=== PATIENT | male | born 1955 | race African-American/Black ===

== ENCOUNTER 2018-06-16 14:40 | Inpatient (IN) ==
[2018-06-16] MEDS ORDERED: ALBUT/IPRATROP 3MG/0.5MG NEB 3 ML VIAL INH STA (15:29)
[2018-06-16] MEDS ORDERED: SODIUM CHLORIDE 0.9% 1000ML 2,000 ML IV SCH (15:30)
--- NOTE | 2018-06-16 15:42 | XRay Report ---
XR chest 1V portable CLINICAL HISTORY: Dyspnea dyspnea COMPARISON STUDY: 04/04/2018 FINDINGS: Similar exam compared to the prior study. Baseline emphysematous change. Improving right ap ical infiltrate. Stable left nasal interval extent right basilar parenchymal infiltrative process. Di aphragms smooth. Mild chronic elevation left hemidiaphragm. IMPRESSION: 1. Improving right apical infiltrate. 2. Stable to slightly progressive bibasilar parenchymal infiltrative change. The above report was generated using voice recognition software. It may contain grammatical, syntax or spelling errors. Electronically signed by: Juan Downing M.D. 06/16/2018 3:40 PM
[2018-06-16 16:03] LABS: Basophils # (auto) 0.04 K/uL (0-0.2); Basophils % (auto) 0.4 %; Eosinophils % (auto) 9.4 %; Hematocrit (blood only) 47.3 % (42-52); Hemoglobin 15.9 g/dL (14.0-18.0); Immature Granulocytes # (auto) 0.04 K/uL (0.00-0.02); Immature Granulocytes % (auto) 0.4 %; Lymphocytes # (auto) 1.96 K/uL (1.2-3.4); Lymphocytes % (auto) 20.4 %; Mean Corpuscular Hgb Conc 33.6 g/dL (32-36); Mean Corpuscular Volume 94.8 fL (80-100); Mean Platelet Volume 9.9 fL (7.4-10.4); Monocytes # (auto) 1.72 K/uL (0.11-0.59); Monocytes % (auto) 17.9 %; Neutrophils # (auto) 4.94 K/uL (1.4-6.5); Neutrophils % (auto) 51.5 %; Platelet Count 326 K/uL (130-400); RDW Coefficient of Variation 15.3 % (11.5-14.5); RDW Standard Deviation 52.8 fL (36.4-46.3); Red Blood Count 4.99 M/uL (4.7-6.1)
[2018-06-16 16:08] LABS: HCO3 VBG 27 mmol/L; Oxygen Saturation VBG < 60.0 %; PCO2 VBG 57 mmHg (38-50); PO2 VBG 18 mmHg; pH VBG 7.29 (7.36-7.41)
[2018-06-16 16:22] LABS: Albumin Level 3.2 gm/dl (3.4-5.0); Calcium 8.9 mg/dl (8.5-10.1); Creatinine Clr Calc Pharmacy 40.6 ml/min; Est GFR (African American) 29.7; Est GFR (Non-African American) 25.7; Potassium 4.3 mmol/L (3.5-5.1)
[2018-06-16 16:24] LABS: Albumin Globulin Ratio 0.7 (0.9-2); Bilirubin,Total 0.4 mg/dl (0.2-1); Globulin 4.5 gm/dl (2.5-4.0); INR 1.1 (0.9-1.1); Partial Thromboplastin Ratio 1.1; Partial Thromboplastin Time 30.1 Seconds (21.0-31.0); Prothrombin Time 10.8 Seconds (9.0-12.0); Total Protein 7.7 gm/dl (6.4-8.2); Troponin I 0.018 ng/ml (0-0.045)
[2018-06-16 17:18] LABS: Influenza A virus by PCR Neg for Influ A (Neg); Influenza B virus by PCR Neg for Influ B (Neg)
--- NOTE | 2018-06-16 17:44 | Ultrasound Report ---
US venous doppler LE BI CLINICAL HISTORY: Leg swelling SHORTNESS OF BREATH COMPARISON STUDY: No previous studies for comparison. FINDINGS: Real-time and color flow Doppler imaging were performed. Flow was seen within the femoral, popliteal and calf veins with no intraluminal thrombus demonstrated. The saphenous vein is patent. IMPRESSION: No evidence of lower extremity DVT. Electronically signed by: Kendall Ahmadi M.D. 06/16/2018 5:43 PM
[2018-06-16] MEDS: SODIUM CHLORIDE 0.9% 1000ML 1,000 ML IV ONE ×2 (17:56→19:01)
[2018-06-16] MEDS ORDERED: CONSULT PHARMACY STA (18:29)
[2018-06-16] MEDS ORDERED: PIPERACILLIN/TAZOBACTAM 3.375 GM in DEXTROSE 5% 100 ML IV ONE (18:45)
[2018-06-16 18:55] LABS: Appearance Urine Clear (Clear); Bilirubin Urine Negative (Negative); Blood Urine Negative (Negative); Color Urine Yellow; Glucose Urine UA Negative (Negative); Ketones Urine Negative (Negative); Leukocyte Esterase Urine Negative (Negative); Nitrite Urine Negative (Negative); Protein Urine Negative (Negative); Specific Gravity Urine 1.011 (1.000-1.030); Urobilinogen Urine Negative (Negative); pH Urine 5.5 (4.5-7.5)
--- NOTE | 2018-06-16 19:40 | Emergency Department Note ---
Entered by Bora Parmar acting as a scribe for History of Present Illness General Chief complaint: Hypotension Source: patient and family Limitations: no limitations History of Present Illness Provider complaint: SOB Onset (ago): hour(s) (6.5) Location: chest (SOB) Pain Consistency: + other (worsening) Maximum Pain Intensity: 6 Quality: + other (SOB) Associated symptoms: + other (Hypotensive); no chest pain The patient is a 62 year old male who presents to the Emergency Room with complaints of an episode shortness of breath that occurred at 0900 this morning 6.5 hours ago. The patient is currently an inmate at [facility] and reports to the ED with corrections officers. The investment officer states that the patient was taken to another facility 3 weeks ago as [facility]. He was sent to the hospital from the [facility] and had a CT of the chest performed. He was admitted to the hospital for COPD exacerbation and then taken back to the [facility] upon discharge. This morning at 0900 the patient began to complain of shortness of breath again and then became hypotensive. He notes that his shortness of breath is resolved at this time. The investment officer adds that the patient is on 40 mg of Lisinopril daily and was given this medication shortly before his symptoms resolved. The patient denies any other abdominal pain, urinary issues, cough, open wounds, or history of cardiac disease. Home Medications Home Medications Medication Instructions Recorded Confirmed Type amlodipine 10 mg PO DAILY 03/30/18 06/16/18 History ipratropium-albuterol 3 ml INHALATION QID PRN 03/30/18 06/16/18 History levalbuterol tartrate [Xopenex HFA] 2 inh INHALATION QID PRN 03/30/18 06/16/18 History metformin 500 mg PO BID 03/30/18 06/16/18 History mirtazapine 45 mg PO HS 03/30/18 06/16/18 History fluticasone-salmeterol [Advair 1 inh INHALATION BID 06/16/18 06/16/18 History Diskus] levofloxacin 750 mg PO DAILY 06/16/18 06/16/18 History lisinopril 40 mg PO DAILY 06/16/18 06/16/18 History montelukast [Singulair] 10 mg PO PM 06/16/18 06/16/18 History Allergies Allergy/AdvReac Type Severity Reaction Status Date / Time moxifloxacin [From Avelox] Allergy Intermediate Itchiness Verified 06/16/18 16:44 Penicillins Allergy Intermediate Itchiness Verified 06/16/18 16:44 Sulfa (Sulfonamide Allergy Intermediate Itchiness Verified 06/16/18 16:44 Antibiotics) Past Med/Surg History Surgical History Hx of splenectomy No significant past surgical history S/P ablation of atrial fibrillation Social History Preferred Language: [place] Visual Impairment: No Limitations Beliefs That Will Affect Care: None Current Living Situation: Other Current Living Situation Comment: Intermediate Feels Safe at Home: Yes Smoking Status: Never smoker Hx Alcohol Use: No Hx Substance Use: No Review of Systems See HPI for pertinent positives & negatives. and A total of 10 systems reviewed and were otherwise negative Physical Exam Vital Signs Vital Signs - 24 hr 06/16/18 14:51 06/16/18 16:26 06/16/18 16:30 Temperature 36.6 C Temperature Source Oral Sepsis Recent Fever Within 48 Hours No Sepsis New/Unexplained Change in Mental Status No Sepsis Action Taken by Nursing No Action Required Pulse Rate 85 88 Pulse Rate [Apical] 85 Pulse Rate from SpO2 Sensor 89 Pulse Rhythm Regular Pulse Rhythm [Apical] Regular Pulse Strength Normal Pulse Strength [Apical] Normal Respiratory Rate 18 18 22 Respiratory Effort / Characteristics Non-Labored Spontaneous Non-Labored Spontaneous Respiratory Depth Normal Normal Respiratory Pattern Regular Regular Blood Pressure 93/56 L 100/72 Blood Pressure [Right Arm] 107/67 Blood Pressure Mean 68 81 Blood Pressure Mean [Right Arm] 80 Blood Pressure Position Lying Blood Pressure Position [Right Arm] Lying Pulse Oximetry 98 95 97 Oxygen Delivery Method Nasal Cannula Nebulizer Nasal Cannula Oxygen Flow Rate 2 6 2 06/16/18 17:00 06/16/18 17:49 06/16/18 18:00 Temperature Temperature Source Sepsis Recent Fever Within 48 Hours Sepsis New/Unexplained Change in Mental Status Sepsis Action Taken by Nursing Pulse Rate 90 96 H 96 H Pulse Rate [Apical] Pulse Rate from SpO2 Sensor 101 H 95 H 96 H Pulse Rhythm Pulse Rhythm [Apical] Pulse Strength Pulse Strength [Apical] Respiratory Rate 23 21 27 H Respiratory Effort / Characteristics Respiratory Depth Respiratory Pattern Blood Pressure 102/73 119/73 Blood Pressure [Right Arm] Blood Pressure Mean 82 88 Blood Pressure Mean [Right Arm] Blood Pressure Position Blood Pressure Position [Right Arm] Pulse Oximetry 94 91 Oxygen Delivery Method Nasal Cannula Oxymask Oxygen Flow Rate 2 2 06/16/18 18:01 06/16/18 18:30 06/16/18 18:31 Temperature Temperature Source Sepsis Recent Fever Within 48 Hours Sepsis New/Unexplained Change in Mental Status Sepsis Action Taken by Nursing Pulse Rate 95 H 100 H 100 H Pulse Rate [Apical] Pulse Rate from SpO2 Sensor 94 H 95 H 104 H Pulse Rhythm Pulse Rhythm [Apical] Pulse Strength Pulse Strength [Apical] Respiratory Rate 23 25 H 21 Respiratory Effort / Characteristics Respiratory Depth Respiratory Pattern Blood Pressure 109/73 130/72 Blood Pressure [Right Arm] Blood Pressure Mean 85 91 Blood Pressure Mean [Right Arm] Blood Pressure Position Blood Pressure Position [Right Arm] Pulse Oximetry 92 95 93 Oxygen Delivery Method Oxymask Oxymask Oxymask Oxygen Flow Rate 2 2 2 06/16/18 18:32 06/16/18 19:00 Temperature Temperature Source Sepsis Recent Fever Within 48 Hours Sepsis New/Unexplained Change in Mental Status Sepsis Action Taken by Nursing Pulse Rate 101 H 101 H Pulse Rate [Apical] Pulse Rate from SpO2 Sensor 101 H 103 H Pulse Rhythm Pulse Rhythm [Apical] Pulse Strength Pulse Strength [Apical] Respiratory Rate 27 H 26 H Respiratory Effort / Characteristics Respiratory Depth Respiratory Pattern Blood Pressure 97/64 L Blood Pressure [Right Arm] Blood Pressure Mean 75 Blood Pressure Mean [Right Arm] Blood Pressure Position Blood Pressure Position [Right Arm] Pulse Oximetry 100 94 Oxygen Delivery Method Oxygen Flow Rate GENERAL: Sitting up in bed, alert, slightly ill-appearing, on nasal cannula, well nourished, no distress, non-toxic EYE EXAM: normal conjunctiva. OROPHARYNX: no exudate, no erythema, lips, buccal mucosa, and tongue normal and mucous membranes are moist NECK: supple, no nuchal rigidity, no adenopathy, non-tender LUNGS: Diffuse wheezing bilaterally. Normal chest wall mechanics HEART: no murmurs, S1 normal and S2 normal ABDOMEN: abdomen soft, non-tender, normo-active bowel, sounds. Large midline abdominal hernia, reducible. no rebound or guarding. BACK: Back is symmetrical on inspection and there is no deformity, no midline tenderness, no CVA tenderness. SKIN: no rashes and no bruising UPPER EXTREMITIES: upper extremities are grossly normal. LOWER EXTREMITIES: No pitting edema. Calves equal bilaterally. NEURO EXAM: Normal sensorium, cranial nerves II-XII grossly intact, normal speech, no gross weakness of arms, no gross weakness of legs. Course ED COURSE: Vital signs were reviewed and showed hypotension and tachycardia. The patients medical record was reviewed The above diagnostic studies were performed and reviewed. ED treatments and interventions as stated above. 1524: The patient was evaluated in room A3. A complete history and physical examination was performed. 1653: I reviewed the patient's case with [facility] Hospitalist FELISHA . She will evaluate the patient for further management. 1658: Upon reevaluation, the patient is resting in bed. I discussed my findings with the patient and he understands and agrees with the treatment plan. Based on the patients age, coexisting illnesses, exam and lab findings the decision to treat as an inpatient was made. The patient remained stable while under my care. The patient will be evaluated for further management. Administered Medications Discontinued Medications Albuterol (Duoneb) 3 ml INH NOW STA Stop: 06/16/18 15:30 Last Admin: 06/16/18 16:26 Dose: 3 ml Documented by: [id number] Sodium Chloride (Nss 1000ml) 2,000 mls @ 999 mls/hr IV .Q2H1M [id number] Stop: 06/16/18 17:30 Last Infusion: 06/16/18 18:24 Dose: 0 mls/hr Documented by: [id number] Admin: 06/16/18 16:26 Dose: 999 mls/hr Documented by: [id number] Sodium Chloride (Nss 1000ml) 1,000 mls @ 999 mls/hr IV .Q1H1M ONE Stop: 06/16/18 17:53 Last Admin: 06/16/18 19:01 Dose: Not Given Documented by: [id number] Piperacillin Sod/Tazobactam (Sod 3.375 gm/ Dextrose) 115 mls @ 230 mls/hr IV 1845 ONE; Protocol Stop: 06/16/18 19:14 Last Admin: 06/16/18 18:48 Dose: 230 mls/hr Documented by: [id number] Medical Decision Making Differential Diagnosis Differential diagnosis: Etiologies such as infections, reactive airway disease, COPD, pneumonia, pleural effusion, pulmonary edema, ARDS, pneumothorax, CHF, cardiac ischemia, cardiac tamponade, dysrhythmia, anemia, pulmonary embolism, musculoskeletal, gastrointestinal process, as well as others were entertained. Medical Records Attestation: I reviewed the patient's medical records. Home Medications Current Medication List: was personally reviewed by me Laboratory Data Attestation: I reviewed the patient's lab results. Result diagrams: 06/16/18 15:38 06/16/18 15:38 Lab Results 06/16/18 06/16/18 06/16/18 Range/Units 15:38 15:38 15:38 WBC 9.60 (4.8-10.8) K/uL RBC 4.99 (4.7-6.1) M/uL Hgb 15.9 (14.0-18.0) g/dL Hct 47.3 (42-52) % MCV 94.8 (80-100) fL MCH 31.9 (25-34) pg MCHC 33.6 (32-36) g/dL RDW Std Deviation 52.8 H (36.4-46.3) fL RDW Coeff of Laurie 15.3 H (11.5-14.5) % Plt Count 326 (130-400) K/uL MPV 9.9 (7.4-10.4) fL Immature Gran % (Auto) 0.4 % Neut % (Auto) 51.5 % Lymph % (Auto) 20.4 % [place] % (Auto) 17.9 % Eos % (Auto) 9.4 % Baso % (Auto) 0.4 % Immature Gran # (Auto) 0.04 H (0.00-0.02) K/uL Neut # (Auto) 4.94 (1.4-6.5) K/uL Lymph # (Auto) 1.96 (1.2-3.4) K/uL [place] # (Auto) 1.72 H (0.11-0.59) K/uL Eos # (Auto) 0.90 H (0-0.5) K/uL Baso # (Auto) 0.04 (0-0.2) K/uL PT 10.8 (9.0-12.0) Seconds INR 1.1 (0.9-1.1) APTT 30.1 (21.0-31.0) Seconds PTT Ratio 1.1 VBG pH (7.36-7.41) VBG pCO2 (38-50) mmHg VBG pO2 mmHg VBG HCO3 mmol/L VBG O2 Saturation % VBG Base Excess mEq/L Barometric Pressure mm/Hg Sodium 134 L (136-145) mmol/L Potassium 4.3 (3.5-5.1) mmol/L Chloride 101 (98-107) mmol/L Carbon Dioxide 24 (21-32) mmol/L Anion Gap 9.0 (3-11) BUN 21 H (7-18) mg/dl Creatinine 2.60 H (0.6-1.4) mg/dl Est Cr Clr Drug Dosing 40.6 ml/min Est GFR ( Amer) 29.7 Est GFR (Non-Af Amer) 25.7 BUN/Creatinine Ratio 8.0 L (10-20) Glucose 98 (70-99) mg/dl Calcium 8.9 (8.5-10.1) mg/dl Total Bilirubin 0.4 (0.2-1) mg/dl AST 26 (15-37) U/L ALT 21 (12-78) U/L Alkaline Phosphatase 70 (45-117) U/L Troponin I 0.018 (0-0.045) ng/ml Total Protein 7.7 (6.4-8.2) gm/dl Albumin 3.2 L (3.4-5.0) gm/dl Globulin 4.5 H (2.5-4.0) gm/dl Albumin/Globulin Ratio 0.7 L (0.9-2) Urine Color Urine Appearance (Clear) Urine pH (4.5-7.5) Ur Specific [employer] (1.000-1.030) Urine Protein (Negative) Urine Glucose (UA) (Negative) Urine Ketones (Negative) Urine Blood (Negative) Urine Nitrite (Negative) Urine Bilirubin (Negative) Urine Urobilinogen (Negative) Ur Leukocyte Esterase (Negative) Influenza Type A (PCR) (Neg) Influenza Type B (PCR) (Neg) 06/16/18 06/16/18 06/16/18 Range/Units 15:49 16:25 18:43 WBC (4.8-10.8) K/uL RBC (4.7-6.1) M/uL Hgb (14.0-18.0) g/dL Hct (42-52) % MCV (80-100) fL MCH (25-34) pg MCHC (32-36) g/dL RDW Std Deviation (36.4-46.3) fL RDW Coeff of Laurie (11.5-14.5) % Plt Count (130-400) K/uL MPV (7.4-10.4) fL Immature Gran % (Auto) % Neut % (Auto) % Lymph % (Auto) % [place] % (Auto) % Eos % (Auto) % Baso % (Auto) % Immature Gran # (Auto) (0.00-0.02) K/uL Neut # (Auto) (1.4-6.5) K/uL Lymph # (Auto) (1.2-3.4) K/uL [place] # (Auto) (0.11-0.59) K/uL Eos # (Auto) (0-0.5) K/uL Baso # (Auto) (0-0.2) K/uL PT (9.0-12.0) Seconds INR (0.9-1.1) APTT (21.0-31.0) Seconds PTT Ratio VBG pH 7.29 L (7.36-7.41) VBG pCO2 57 H (38-50) mmHg VBG pO2 18 mmHg VBG HCO3 27 mmol/L VBG O2 Saturation < 60.0 % VBG Base Excess -1.0 mEq/L Barometric Pressure 730.6 mm/Hg Sodium (136-145) mmol/L Potassium (3.5-5.1) mmol/L Chloride (98-107) mmol/L Carbon Dioxide (21-32) mmol/L Anion Gap (3-11) BUN (7-18) mg/dl Creatinine (0.6-1.4) mg/dl Est Cr Clr Drug Dosing ml/min Est GFR ( Amer) Est GFR (Non-Af Amer) BUN/Creatinine Ratio (10-20) Glucose (70-99) mg/dl Calcium (8.5-10.1) mg/dl Total Bilirubin (0.2-1) mg/dl AST (15-37) U/L ALT (12-78) U/L Alkaline Phosphatase (45-117) U/L Troponin I (0-0.045) ng/ml Total Protein (6.4-8.2) gm/dl Albumin (3.4-5.0) gm/dl Globulin (2.5-4.0) gm/dl Albumin/Globulin Ratio (0.9-2) Urine Color Yellow Urine Appearance Clear (Clear) Urine pH 5.5 (4.5-7.5) Ur Specific [employer] 1.011 (1.000-1.030) Urine Protein Negative (Negative) Urine Glucose (UA) Negative (Negative) Urine Ketones Negative (Negative) Urine Blood Negative (Negative) Urine Nitrite Negative (Negative) Urine Bilirubin Negative (Negative) Urine Urobilinogen Negative (Negative) Ur Leukocyte Esterase Negative (Negative) Influenza Type A (PCR) Neg for Influ A (Neg) Influenza Type B (PCR) Neg for Influ B (Neg) Imaging Data Attestation: I personally reviewed and interpreted this imaging study as follows: Radiologist's Impression: US venous doppler LE BI CLINICAL HISTORY: Leg swelling SHORTNESS OF BREATH COMPARISON STUDY: No previous studies for comparison. FINDINGS: Real-time and color flow Doppler imaging were performed. Flow was seen within the femoral, popliteal and calf veins with no intraluminal thrombus demonstrated. The saphenous vein is patent. IMPRESSION: No evidence of lower extremity DVT. Electronically signed by: Kendall Ahmadi M.D. 06/16/2018 5:43 PM XR chest 1V portable CLINICAL HISTORY: Dyspnea dyspnea COMPARISON STUDY: 04/04/2018 FINDINGS: Similar exam compared to the prior study. Baseline emphysematous change. Improving right apical infiltrate. Stable left nasal interval extent right basilar parenchymal infiltrative process. Diaphragms smooth. Mild chronic elevation left hemidiaphragm. IMPRESSION: 1. Improving right apical infiltrate. 2. Stable to slightly progressive bibasilar parenchymal infiltrative change. The above report was generated using voice recognition software. It may contain grammatical, syntax or spelling errors. Electronically signed by: Juan Downing M.D. 06/16/2018 3:40 PM ECG Data Attestation: I personally reviewed and interpreted this ECG as follows: Indication: SOB/dyspnea Rate (beats per minute): 88 Rhythm: sinus rhythm Findings: + ST depression (inferior and anterior and lateral) and + T-wave inversion (high lateral) Comparison ECG Date: from (03/31/2018) Change: the following changes noted (TWI are new, STD new) Blood Pressure Blood Pressure Findings: Low blood pressure MDM Narrative Patient is a 62-year-old male presents the ER for hypotension and weakness. He has no chest pain or shortness of breath. Vitals with systolic pressures in the low 90s. Heart rate was normal. Afebrile. Patient was on 2 L nasal cannula satting 95%. Labs were obtained and showed no significant leukocytosis or anemia. INR was unremarkable. VBG with pH of 7.29 and a CO2 of 57. BMP shows a creatinine of 2.6 with a baseline of 1.3. Consistent with acute kidney injury. Do favor secondary to hypotension. LFTs bilirubin were unremarkable. Troponin was negative. UA was unremarkable as well as influenza. Patient does have wheezing and was given a neb treatment. Unable to perform CT PE due to creatinine. Duplex of lower extremities were negative. Patient upon review of the chart did have a recent CT of the chest which was fairly unremarkable with the exception of pneumonia. Will hold on antibiotics at this time. Patient was updated bedside. He was given 3 L IV normal saline and systolic pressures in proved. Patient was updated bedside admitted to the hospitalist for further workup. Impression & Plan Hypotension, ANTHONY (acute kidney injury), Respiratory acidosis Discharge Plan Visit Data Chief Complaint: Hypotension ED Provider: Joaquin Asher Discharge Problem: Hypotension, ANTHONY (acute kidney injury), Respiratory acidosis Patient Disposition: Being Evaluated by Hospitalist Forms Stand Alone Forms: My [facility] Prescriptions Prescriptions: No Action metformin 500 mg Tablet 500 mg PO BID RF: 0 ipratropium-albuterol 0.5 mg-3 mg(2.5 mg base)/3 mL Solution For Nebulization 3 ml INHALATION QID PRN (Reason: Shortness Of Breath Or Wheezing) RF: 0 amlodipine 10 mg Tablet 10 mg PO DAILY RF: 0 mirtazapine 45 mg Tablet 45 mg PO HS RF: 0 levalbuterol tartrate [Xopenex HFA] 45 mcg/actuation Hfa Aerosol Inhaler 2 inh INHALATION QID PRN (Reason: Shortness Of Breath) RF: 0 fluticasone-salmeterol [Advair Diskus] 500-50 mcg/dose Blister With Device 1 inh INHALATION BID RF: 0 levofloxacin 750 mg Tablet 750 mg PO DAILY RF: 0 lisinopril 40 mg Tablet 40 mg PO DAILY RF: 0 montelukast [Singulair] 10 mg Tablet 10 mg PO PM RF: 0 Referrals Referrals: PCP,NO [Primary Care Provider] - Discharge Problem: Hypotension Qualifiers: Hypotension type: unspecified hypotension type Qualified Code(s): I95.9 - Hypotension, unspecified The scribe's documentation has been prepared under my direction and personally reviewed by me in its entirety. I confirm that the note above accurately reflects all work, treatment, procedures, and medical decision making performed by me.
--- NOTE | 2018-06-16 19:46 | History & Physical Report ---
Date of Service June 16, 2018 Assessment & Plan (1) Acute on chronic respiratory failure with hypoxia: (2) Pneumonia: (3) Asthma exacerbation: This is a 62-year-old male inmate with a PMH of asthma, DM II, HTN and other medical problems listed below who presents with worsening shortness of breath and wheezing over the past 2 weeks and was found to have acute hypoxic respiratory failure in the setting of asthma exacerbation and possible PNA. -Hypoxic at 88% on room air. Now 94% on 2L Oxymask -H/o asthma as well as concern for underlying bronchiectasis on CT chest, per pulmonary service last admission. Also concern for allergic bronchopulmonary aspergillosis -No leukocytosis, flu PCR is negative, procalcitonin is pending -CXR with improving right apical infiltrate and stable to slightly progressive bibasilar parenchymal infiltrative change -Started on Zosyn, PO Doxycycline, IV solu-medrol 40mg Q8H and Duonebs QIDR -Continue Advair, Xopenex inhaler, singulair -Bilateral venous dopplers without evidence of DVT -Pulmonary consult (4) Hypotension: Initially hypotensive at 93/56. Improved to 130/72 after 2L NSS -Continue morning amlodipine with hold parameters (5) ANTHONY (acute kidney injury): Creatinine elevated at 2.6, baseline 1.2 -Likely prerenal due to dehydration -Hold lisinopril -Repeat BMP in a.m. 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 Discharge planning for return to facility when medically appropriate. Patient seen in collaboration with Dr. Cantor. Please see addendum. History of Present Illness Chief Complaint: Shortness of breath, wheezing Primary Care Provider: NO PCP This is a 62-year-old male inmate with a PMH of asthma, DM II, HTN and other me dical problems listed below who presents with worsening shortness of breath and wheezing over the past 2 weeks. Patient has history of asthma and has been on chronic prednisone for the past few years. Was admitted in March 2018 and found to have multi lobar pneumonia and was treated with Rocephin and doxycycline, steroids and nebs. CT chest with contrast was performed at that time which showed possible evidence of bronchiectasis, per pulmonary service. There was also concern for allergic bronchopulmonary aspergillosis. Outpatient PFTs were recommended to differentiate between asthma or COPD, as well as testing for IgE with Aspergillus titers to evaluate for ABPA (allergic bronchopulmonary aspergillosis) on the CT scan most notable in the RUL. [place] well when he was discharged back to facility in March until a few weeks ago, when he noticed wheezing and worsening shortness of breath. Was sent to [facility], where 10 mg prednisone dose was discontinued. Has been taking Advair , Xopenex inhaler, Singulair and DuoNeb treatments 3 times a day with mild improvement. But still endorsing generalized weakness, fatigue and dry cough. Denies any fever, chills, lightheadedness, headache, chest pain, palpitations, nausea, vomiting, abdominal pain, diarrhea, constipation or lower extremity swelling. Allergies Allergy/AdvReac Type Severity Reaction Status Date / Time moxifloxacin [From Avelox] Allergy Intermediate Itchiness Verified 06/16/18 16:44 Penicillins Allergy Intermediate Itchiness Verified 06/16/18 16:44 Sulfa (Sulfonamide Allergy Intermediate Itchiness Verified 06/16/18 16:44 Antibiotics) Home Medications Home Medications Medication Instructions Recorded Confirmed Type amlodipine 10 mg PO DAILY 03/30/18 06/16/18 History ipratropium-albuterol 3 ml INHALATION QID PRN 03/30/18 06/16/18 History levalbuterol tartrate [Xopenex HFA] 2 inh INHALATION QID PRN 03/30/18 06/16/18 History metformin 500 mg PO BID 03/30/18 06/16/18 History mirtazapine 45 mg PO HS 03/30/18 06/16/18 History fluticasone-salmeterol [Advair 1 inh INHALATION BID 06/16/18 06/16/18 History Diskus] levofloxacin 750 mg PO DAILY 06/16/18 06/16/18 History lisinopril 40 mg PO DAILY 06/16/18 06/16/18 History montelukast [Singulair] 10 mg PO PM 06/16/18 06/16/18 History Past Med/Surg History Medical History Family history non-contributory (Chronic) Asthma (Chronic) Steroid-induced diabetes mellitus (Chronic) Surgical History H/O knee surgery (Resolved) H/O splenectomy (Resolved) Hx of splenectomy (Resolved) S/P ablation of atrial fibrillation (Resolved) Social History Preferred Language: Bangladeshi Visual Impairment: No Limitations Beliefs That Will Affect Care: None Current Living Situation: Other Current Living Situation Comment: Half-Way Feels Safe at Home: Yes Smoking Status: Never smoker Hx Alcohol Use: No Hx Substance Use: No Review of Systems All systems reviewed & are unremarkable except as noted in HPI & below Physical Exam Vital Signs (Past 24 Hours): Last Vital Signs Temp 36.6 C 06/16/18 14:51 Pulse 101 H 06/16/18 19:00 Resp 26 H 06/16/18 19:00 BP 97/64 L 06/16/18 19:00 Pulse Ox 94 06/16/18 19:00 Physical Exam: General Appearance: WD/WN, distress from acute illness. Saturation 94% on 2L Oxymask Head: normocephalic, atraumatic Eyes: normal inspection, PERRL, EOMI ENT: hearing grossly normal, pharynx normal (moist mucous membranes) Neck: supple, no JVD, no adenopathy Respiratory/Chest: Diffuse wheezing in lung traore. No rales or rhonci. No respiratory distress or accessory muscle use Cardiovascular: regular rate, rhythm, no murmur, normal peripheral pulses, no BLE edema Abdomen/GI: normal bowel sounds, soft, non-tender to palpation Extremities/Musculoskelatal: normal inspection, no calf tenderness, normal capillary refill, no pedal edema Neurologic/Psych: alert, normal mood/affect, oriented x 3 Skin: normal color, warm/dry Results & Data Laboratory Results Short CBC 06/16/18 Range/Units 15:38 WBC 9.60 (4.8-10.8) K/uL Hgb 15.9 (14.0-18.0) g/dL Hct 47.3 (42-52) % Plt Count 326 (130-400) K/uL BMP 06/16/18 15:38 Sodium 134 L Potassium 4.3 Chloride 101 Carbon Dioxide 24 BUN 21 H Creatinine 2.60 H Glucose 98 Calcium 8.9 Cardiac Enzymes 06/16/18 Range/Units 15:38 Troponin I 0.018 (0-0.045) ng/ml Liver Function 06/16/18 Range/Units 15:38 Total Bilirubin 0.4 (0.2-1) mg/dl AST 26 (15-37) U/L ALT 21 (12-78) U/L Alkaline Phosphatase 70 (45-117) U/L Albumin 3.2 L (3.4-5.0) gm/dl Urine 06/16/18 Range/Units 18:43 Urine Color Yellow Urine Appearance Clear (Clear) Urine pH 5.5 (4.5-7.5) Ur Specific [place] 1.011 (1.000-1.030) Urine Protein Negative (Negative) Urine Glucose (UA) Negative (Negative) Diagnostic Findings CXR: IMPRESSION: 1. Improving right apical infiltrate. 2. Stable to slightly progressive bibasilar parenchymal infiltrative change. Venous doppler study: No evidence of lower extremity DVT Code Status & VTE Plan Code Status FULL CODE Supervising Physician Co-Signing Physician Notes I have seen and examined the patient with physician professional nursing assistant and would like to comment that this is a 62 year old male with complicated respiratory history of recurrent asthma with chronic prednisone use and steroid induced diabetes mellitus, recent history of multilobar pneumonia in March 2018, bronchiectasis and concern for allergic bronchopulmonary aspergillosis Patient had recent 06/09/18 CT lung 1. Moderate bilateral bronchial wall thickening with mild mucous plugging, likely bronchitis or reactive airway disease. 2. Emphysema with bilateral multi segmental reticular opacities suggests areas of fibrosis. 3. Subsegmental groundglass and consolidative opacities about the basal left lower lobe suggests infectious or inflammatory pneumonitis. Tree-in-bud nodules of the lingula and right middle lobe suggests associated bronchiolitis. 4. No pleural effusion. 5. Mild persistent mediastinal adenopathy, improved from comparison. 6. Soft tissue mass of the abdominal left upper quadrant about the pancreatic tail measuring up to 6.6 cm appears unchanged. In the setting of an absent spleen, a large splenule is the primary differential consideration. On admission 06/16/18 CXR Baseline emphysematous change. Improving right apical infiltrate. Stable left nasal interval extent right basilar parenchymal infiltrative process (compared to march 2018 CXR). Diaphragms smooth. Mild chronic elevation left hemid iaphragm On exam, the patient appears to have asthma exacerbation with wheezing and acute respiratory failure with hypoxia will give scheduled nebulizer treatments and give IV solumedrol to ease upper airway breathing will need to monitor blood sugars closely because patient has history of respiratory infections with hospital admissions reviously and lives in correctional facility, the patient should be empirically treated for pneumonia. will follow up procalcitonin to see if any supports of respiratory infection patient is complicated pulmonary patient and will seek pulmonary consultation patient's abdominal hernia is chronic but can also present as additional problem for moving the diaphragm to take deep breaths; no acute abdominal pain will give IV fluids for the acute kidney Injury and hold lisinopril to monitor creatinine and to improve relative hypotension possibly will need to hold off daily amlodipine if blood pressure remains low Physical Exam General: patient able to speak in full sentences, awake and alert Lungs: wheezing, on oxymask Heart: mild tachycardia Abdomen: abdominal hernia, soft, nontender, bowel sounds Extremities: moves all extremities Neuro: no focal neurological deficits is admitting physician on 06/16/18. Colleague Dr. Solomon will continue to follow the patient as hospitalist starting 06/17/18 (1) Hypotension Hypotension type: unspecified hypotension type Qualified Code(s): I95.9 - Hypotension, unspecified
[2018-06-16] MEDS ORDERED: PIPERACILL/TAZOBAC CONSULT ACTIVE PRN (20:15)
[2018-06-16] MEDS ORDERED: GLUCOSE 10 TABS/TUBE PO PRN (20:29)
[2018-06-16] MEDS ORDERED: CARBOHYDRATES FOR HYPOGLYCEMIA PO PRN (20:29)
[2018-06-16] MEDS ORDERED: LEVALBUTEROL TARTRATE 15 GM HFA.AER.AD INH PRN (20:29)
[2018-06-16] MEDS ORDERED: ONDANSETRON INJ 2 MG/ML 2 ML VIAL IV PRN (20:29)
[2018-06-16] MEDS ORDERED: ACETAMINOPHEN 325 MG TAB PO PRN (20:29)
[2018-06-16] MEDS ORDERED: GLUCAGON FOR INJ 1 MG VIAL SQ PRN (20:29)
[2018-06-16] MEDS ORDERED: DEXTROSE 50% 50 ML SYRINGE IV PRN (20:29)
[2018-06-16] MEDS ORDERED: GLUCOSE 40% GEL 15 GM TUBE PO PRN (20:29)
[2018-06-16] MEDS ORDERED: POLYETHYLENE (MIRALAX) 17 GM PACK PO PRN (20:29)
[2018-06-16] MEDS: methylPREDNISolone 40 MG in SYRINGE 0 ML IV SCH (20:47)
[2018-06-16] MEDS: SODIUM CHLORIDE 0.9% 1000ML 1,000 ML IV SCH (20:48)
[2018-06-16] MEDS: ALBUT/IPRATROP 3MG/0.5MG NEB 3 ML VIAL NEB SCH ×2 (21:01→23:16)
[2018-06-16] MEDS: INSULIN ASPART 100 UNITS/ML 3 ML PEN SC SCH (21:24)
[2018-06-16] MEDS: MONTELUKAST SODIUM 10 MG TABLET PO SCH (21:26)
[2018-06-16] MEDS: FLUTICASONE/SALMETEROL (ADVAIR) 500/50 INH 14 PUFF INH SCH (21:26)
[2018-06-16] MEDS: MIRTAZAPINE SOLTAB 15 MG PO SCH (21:26)
[2018-06-16] MEDS: HEPARIN SOD 5,000 UNIT/0.5 ML VIAL SQ SCH (21:30)
[2018-06-16] MEDS: DOXYCYCLINE HYCLATE 100 MG CAP PO SCH (21:36)
[2018-06-16] MEDS: PIPERACILLIN/TAZOBACTAM 3.375 GM in DEXTROSE 5% 100 ML IV SCH (23:46)
[2018-06-17] MEDS: ALBUT/IPRATROP 3MG/0.5MG NEB 3 ML VIAL NEB SCH ×6 (03:03→23:00)
[2018-06-17] MEDS: methylPREDNISolone 40 MG in SYRINGE 0 ML IV SCH (04:48)
[2018-06-17] MEDS: HEPARIN SOD 5,000 UNIT/0.5 ML VIAL SQ SCH ×3 (05:49→21:24)
[2018-06-17 07:37] LABS: Hematocrit (blood only) 43.1 % (42-52); Hemoglobin 14.5 g/dL (14.0-18.0); Mean Corpuscular Hgb Conc 33.6 g/dL (32-36); Mean Corpuscular Volume 95.1 fL (80-100); Mean Platelet Volume 9.7 fL (7.4-10.4); Platelet Count 368 K/uL (130-400); RDW Coefficient of Variation 15.3 % (11.5-14.5); RDW Standard Deviation 53.6 fL (36.4-46.3); Red Blood Count 4.53 M/uL (4.7-6.1); White Blood Count 8.82 K/uL (4.8-10.8)
[2018-06-17 08:29] LABS: BUN Creatinine Ratio 10.3 (10-20); Calcium 8.9 mg/dl (8.5-10.1); Creatinine Clr Calc Pharmacy 51.2 ml/min; Est GFR (African American) 39.6; Est GFR (Non-African American) 34.2
[2018-06-17] MEDS: INSULIN ASPART 100 UNITS/ML 3 ML PEN SC SCH ×4 (08:35→21:25)
[2018-06-17] MEDS: FLUTICASONE/SALMETEROL (ADVAIR) 500/50 INH 14 PUFF INH SCH ×2 (08:36→20:59)
[2018-06-17] MEDS: SODIUM CHLORIDE 0.9% 1000ML 1,000 ML IV SCH ×2 (08:37→23:41)
[2018-06-17] MEDS: DOXYCYCLINE HYCLATE 100 MG CAP PO SCH ×2 (08:37→20:57)
[2018-06-17] MEDS ORDERED: AMLODIPINE BESYLATE 5 MG TAB PO SCH (09:00)
[2018-06-17] MEDS: PIPERACILLIN/TAZOBACTAM 3.375 GM in DEXTROSE 5% 100 ML IV SCH ×3 (10:23→23:51)
--- NOTE | 2018-06-17 11:19 | Consultation Report ---
DATE OF CONSULTATION: 06/17/2018 PULMONARY CONSULTATION TIME: 9:45 a.m. REPORT OF CONSULTATION: The patient was seen in room 251, bed 1. He is an inmate at [facility]. He has a 20-year history of bronchial asthma. 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 He states that he has been maintained on asthma medicines for many years and he has been steroid dependent for many years. They have tried numerous things to try and get him off prednisone, but he states he would always exacerbate. The patient was hospitalized at [facility] from 03/30/2018 until 04/05/2018 with multilobar pneumonia. At that time, he was expectorating yellow phlegm and was having difficulty breathing. A CAT scan of the chest at that time was abnormal in numerous areas with infiltrates. He states he felt fairly good following discharge. Subsequently, he developed some increased symptoms and was transferred to another facility that had an infirmary. Reportedly, where he is currently does not have an infirmary. He states that about 10 days ago, they stopped his prednisone, all of a sudden after being on long-term prednisone. Since then, he has had a gradual increase in his shortness of breath and wheezing. Yesterday morning, he was not feeling well. He was weak. He was lightheaded. He was found to have a blood pressure of 80/50. The patient then told me that he is told that he is hypertensive and he is on medicines for this, but he does not usually take it. For reasons that were not clear to me, he states they gave him a blood pressure pill yesterday and he took it. I do not know if this is a reliable history or not. He was brought to the hospital where he was found to have a significant increase in his creatinine and he was hypotensive. He was given IV fluids. The patient was started on antibiotics and steroids. He states today he feels about like he usually does. He states he wheezes every day. He feels that his cough is mild. He is not expectorating any phlegm. He denies chest pains. Denies chills, fevers or sweats. The patient states he never had allergy testing. He admits to having increased symptoms in late November and December with sneezing. It is possible that he has some degree of hayfever. The possibility of him having allergic bronchopulmonary aspergillosis was brought up at the time of his last evaluation in March. He did have a followup CAT scan of the chest done as an outpatient on 06/09/2018. This was reviewed. There was overall significant improvement in multiple areas of the pneumonic infiltrate seen previously. He still has areas that look to be bronchiectasis in my opinion in the upper lobes bilaterally. He also has areas of subpleural bleb formation and areas of fibrosis. These findings would not typically be seen with asthma which was uncomplicated. He did have some areas of scattered ground-glass tree-in-bud nodules as well. It was somewhat difficult obtaining rationalization between what the patient told me he is taking and what is showing up on his list. For instance, he seemed unaware of the fact that he is taking multiple medications for blood pressure including amlodipine 10 mg daily, and lisinopril 40 mg daily. He does acknowledge that he takes Advair 1 puff twice a day, neb treatments as needed, and Xopenex as needed, as well as Singulair. PAST SURGICAL HISTORY: 1. 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 2. Left knee surgery. 3. Right toes amputation as a result of frostbite approximately 2007. 4. Ablation done for tachyarrhythmia. PAST MEDICAL HISTORY: 1. Asthma. 2. Hypertension. 3. Diabetes type 2. 4. Frostbite as noted. SOCIAL HISTORY: Tobacco never. ETOH - "social." Drug use, many years of marijuana. Previously, he also reportedly was addicted to cocaine by history. He did not acknowledge this. He states he has been drug free for 13 years. ALLERGIES: 1. MOXIFLOXACIN. 2. PENICILLIN. 3. SULFA. 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 FAMILY HISTORY: Mother in her 80s, had diabetes. Father from alcoholism. REVIEW OF SYSTEMS: The patient denies nasal congestion or coryza. He denies heartburn or indigestion. He does have an abdominal wall hernia that causes pain when he coughs. He denies urinary complaints. Remainder of the review of systems is negative except as noted here and in the history of present illness. Ten systems reviewed. PHYSICAL EXAMINATION: GENERAL: The patient is a 62-year-old -[place] male who was cooperative, alert and oriented. He was in no distress. He did cough occasionally during the exam. VITAL SIGNS: Temperature is 36.6. Highest temperature since admission 37.4. Cardiac rate is 93 per minute. Rhythm regular. Blood pressure this morning 106/69. It appears that the lowest recorded blood pressure since he came was 93/56. It had been recorded at his facility, however, with blood pressure of 80/50 yesterday. HEENT: Pupils were reactive. Cataract formation was noted. Nares were mildly congested. Mouth exam shows a Mallampati grade 2 with an enlarged uvula. NECK: Palpation of the neck reveals no lymph nodes. CHEST: The chest was of normal expansion. Respiratory rate was 20 and not labored. Wheeze and rhonchi are heard bilaterally on expiration. Saturation 96% on 3 liters. There was no accessory muscle use. ABDOMEN: Inspection of the abdomen reveals a prominent area of herniation in the abdominal wall area of the right mid and lower abdomen. Bowel sounds were normal. There was no tenderness to palpation. There was a very large scar from prior splenectomy. EXTREMITIES: Shows no cyanosis, clubbing or edema. He has a skin scaling and dryness in the lower legs bilaterally. He states that this was reportedly secondary to eczema, though it did not look characteristic for eczema to me. LABORATORY DATA: White count is 8.82. Hemoglobin 14.5. Platelets 368,000. Yesterday, his white count was 9.6. Differential count yesterday did show 9.4% eosinophils. Perhaps this is now elevated because he was off prednisone for about 10 days. Coags were normal. Electrolytes show sodium 137, potassium 5, chloride 109, bicarbonate 22. Yesterday, BUN was 21 with a creatinine of 2.6. Today, the creatinine is 2.05. Blood sugars are elevated. The highest today so far is 234. Troponin was negative. Liver functions normal. Procalcitonin normal at 0.18. Urinalysis was negative. MRSA screen was negative. Flu test was negative. EKG done today shows normal sinus rhythm with a rate of 89. T-wave abnormalities were noted across the precordium. Cannot exclude ischemia. Slight ST elevation is reported in the inferior leads. EKG yesterday reported normal sinus rhythm with left ventricular hypertrophy. Again, there were T-wave inversions in precordial leads as well as inferior. These EKGs appear more abnormal than a prior tracing done 03/31/2018. Echo which was done 03/31/2018 showed ejection fraction of 50-55% with mild to moderate inferior wall hypokinesis and mild to moderate posterior wall hypokinesis. IMPRESSION: 1. Asthma - moderate persistent - steroid dependent. 2. Bronchiectasis. 3. Rule out allergic bronchopulmonary aspergillosis. 4. Mild mediastinal adenopathy. COMMENTS AND RECOMMENDATIONS: The patient still has mild to moderate wheezing. He states he is much improved from yesterday. It is possible his worsening came from being off prednisone if indeed that was accurate. Because his sugars are substantially elevated, I would significantly cut back the methylprednisolone perhaps to 20 mg IV q. 8 hours and then switch over to prednisone tomorrow. I would suggest that he be maintained at 10 mg daily following discharge once he is tapered down to that. If attempts were going to be made to further decrease his prednisone that he should do so very slowly such as 1 mg at a time and making changes over only at least a 2-week period. It is possible the patient might be a candidate for some of the newer medicines that might be anti-IgE or interleukin blockers. This would require the patient having evaluations of IgE and eosinophils. Ideally, this is best done without any steroids on board. I think this is why yesterday CBC reflects increased eosinophils. The patient indicated that when he is no longer incarcerated, he plans on going back to his drier belt conveyor in [place] for their followup. There has been significant improvement in his CAT scan, though it still was definitively abnormal. Again, it is not known on my part how long he is scheduled to be incarcerated, but at some point in time, perhaps [address] that should be rechecked. I am doubtful the patient will need antibiotics following discharge. It does not appear that this was an acute infection at this particular time. He did have EKG changes. We will obviously defer to the hospitalist team regarding that as well as the management of his hypertensive medications.
[2018-06-17] MEDS: methylPREDNISolone 20 MG in SYRINGE 0 ML IV SCH ×2 (12:32→20:58)
--- NOTE | 2018-06-17 17:44 | Hospitalist Progress Note ---
Date of Service June 17, 2018 Assessment & Plan (1) Acute on chronic respiratory failure with hypoxia: (2) Pneumonia: (3) Asthma exacerbation: Patient is a 62 yr male inmate with H/O Asthma, DM II and other medical problems presents with worsening shortness of breath and wheezing over the past 2 weeks. Asthma-- Moderate Persistent, steroid dependent Bronchiectasis R/O allergic bronchopulmonary aspergillosis Hypoxia CXR: Improving right apical infiltrate. Stable to slightly progressive bibasilar parenchymal infiltrative change. 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 Hold home agents BG levels elevated secondary to steroids Continue Sliding scale insulin while inpatient Monitor BGs DVT Px: Heparin SQ Code status: Full code Disposition: Plan to discharge to facility when medically stable Subjective Patient is seen and examined at bedside States feeling better today less SOB, cough Denies chest pain/discomfort, dizziness, nausea Guards at bedside Offers no other complaints Physical Exam Vital Signs (Past 24 Hours): Last Vital Signs Temp 36.8 C 06/17/18 15:00 Pulse 105 H 06/17/18 15:00 Resp 21 06/17/18 15:00 BP 107/60 06/17/18 15:00 Pulse Ox 90 06/17/18 15:00 Physical Exam: Physical Exam: Vitals signs as noted above General Appearance:Moderately built and nourished, no apparent distress Head: normocephalic, Atraumatic Eyes: normal inspection, EOMI Neck: supple, Trachea midline Respiratory/Chest: Decreased breath sounds, + wheezes Cardiovascular: S1, S2, No murmur Abdomen/GI:Soft, Non tender, + abdominal hernia, Bowel sounds present Extremities/Musculoskelatal:normal inspection, no edema Neurologic/Psych:AAOX3, grossly no focal neurological deficits Skin: normal color, warm Results & Data Laboratory Results Short CBC 06/17/18 Range/Units 07:11 WBC 8.82 (4.8-10.8) K/uL Hgb 14.5 (14.0-18.0) g/dL Hct 43.1 (42-52) % Plt Count 368 (130-400) K/uL BMP 06/17/18 07:11 Sodium 137 Potassium 5.0 D Chloride 109 H Carbon Dioxide 22 BUN 21 H Creatinine 2.05 H D Glucose 234 H Calcium 8.9 Cardiac Enzymes 06/17/18 Range/Units 07:11 Troponin I < 0.015 (0-0.045) ng/ml Urine 06/16/18 Range/Units 18:43 Urine Color Yellow Urine Appearance Clear (Clear) Urine pH 5.5 (4.5-7.5) Ur Specific [place] 1.011 (1.000-1.030) Urine Protein Negative (Negative) Urine Glucose (UA) Negative (Negative) (1) Hypotension Hypotension type: unspecified hypotension type Qualified Code(s): I95.9 - Hypotension, unspecified
[2018-06-17] MEDS: MONTELUKAST SODIUM 10 MG TABLET PO SCH (20:58)
[2018-06-17] MEDS: MIRTAZAPINE SOLTAB 15 MG PO SCH (20:58)
[2018-06-18] MEDS: ALBUT/IPRATROP 3MG/0.5MG NEB 3 ML VIAL NEB SCH ×4 (02:55→15:19)
[2018-06-18] MEDS: methylPREDNISolone 20 MG in SYRINGE 0 ML IV SCH ×2 (05:39→12:20)
[2018-06-18] MEDS: HEPARIN SOD 5,000 UNIT/0.5 ML VIAL SQ SCH ×2 (06:16→14:14)
[2018-06-18 07:55] LABS: Hematocrit (blood only) 41.3 % (42-52); Hemoglobin 13.6 g/dL (14.0-18.0); Mean Corpuscular Hgb Conc 32.9 g/dL (32-36); Mean Platelet Volume 10.1 fL (7.4-10.4); Platelet Count 372 K/uL (130-400); RDW Coefficient of Variation 15.9 % (11.5-14.5); RDW Standard Deviation 55.8 fL (36.4-46.3); White Blood Count 18.92 K/uL (4.8-10.8)
[2018-06-18] MEDS: FLUTICASONE/SALMETEROL (ADVAIR) 500/50 INH 14 PUFF INH SCH (08:05)
[2018-06-18] MEDS: PIPERACILLIN/TAZOBACTAM 3.375 GM in DEXTROSE 5% 100 ML IV SCH (08:05)
[2018-06-18] MEDS: DOXYCYCLINE HYCLATE 100 MG CAP PO SCH (08:06)
[2018-06-18] MEDS: INSULIN ASPART 100 UNITS/ML 3 ML PEN SC SCH ×3 (08:08→17:00)
[2018-06-18 08:09] LABS: BUN Creatinine Ratio 13.5 (10-20); Calcium 8.7 mg/dl (8.5-10.1); Creatinine Clr Calc Pharmacy 67.5 ml/min; Est GFR (African American) 54.7; Est GFR (Non-African American) 47.2; Potassium 4.8 mmol/L (3.5-5.1)
--- NOTE | 2018-06-18 14:58 | Progress Note ---
DATE: 06/18/2018 PULMONARY PROGRESS NOTE TIME OF EXAM: 2:15 p.m. SUBJECTIVE: The patient states he is feeling better. He does not feel quite as good as he usually does, but he feels better than yesterday. His cough has decreased. OBJECTIVE: GENERAL: The patient appeared comfortable. VITAL SIGNS: Temperature was 36.7. There have been no significant fevers. Heart rate 86 per minute. Rhythm regular. Blood pressure 142/76. LUNGS: Auscultation of the lung traore revealed very mild wheeze on expiration. There was no accessory muscle use. Respiratory rate 18. Saturation on room air 92%. EXTREMITIES: Showed no cyanosis, clubbing or edema. LABORATORY DATA: White blood cell count today is 18.92. Yesterday, it was 8.82. This increases likely secondary to the steroids. Hemoglobin 13.6. Platelets 372,000. Electrolytes show sodium 139, potassium 4.8, chloride 111, and bicarbonate 24. BUN is 21 and creatinine is 1.57. Yesterday's creatinine 2.05. Blood sugars today as high as 191. Records were reviewed from [facility]. The patient has an Aspergillus fumigatus allergen test. It was reportedly normal. I could not tell exactly what type of test it was. IgA was normal at 258. IgG was normal at 1080. IgM was normal. IgE was normal at 66.9. However, it is unknown how long and if the patient had been off of steroids prior to this evaluation. IMPRESSION: 1. Asthma - moderate persistent - steroid dependent. 2. Bronchiectasis. 3. Mild mediastinal adenopathy - improved from prior. 4. Rule out allergic bronchopulmonary aspergillosis - though less likely. COMMENTS AND RECOMMENDATIONS: The patient seems to be better today. He appears like he is ready or near ready for discharge. He is, however, still receiving the methylprednisolone. Obviously, he would need to go home with prednisone in higher doses with a gradual taper. The Zosyn could be changed to Augmentin. Would continue the doxycycline for a full course. Will discuss the case with Dr. Solomon and decide if he is ready for discharge today or if he should wait until tomorrow.
--- NOTE | 2018-06-18 15:32 | Hospitalist Progress Note ---
Date of Service June 18, 2018 Assessment & Plan (1) Acute on chronic respiratory failure with hypoxia: (2) Pneumonia: (3) Asthma exacerbation: Patient is a 62 yr male inmate with H/O Asthma, DM II and other medical problems presents with worsening shortness of breath and wheezing over the past 2 weeks. Asthma exacerbation-- Moderate Persistent, steroid dependent Bronchiectasis R/O allergic bronchopulmonary aspergillosis Hypoxia CXR: Improving right apical infiltrate. Stable to slightly progressive bibasilar parenchymal infiltrative change. Venous Doppler: No DVT Normal Procalcitonin flu PCR is negative Continue Abx Taper Steroids as able Needs work for IgE and eosinophils as outpatient to r/o allergic bronchopulmonary aspergillosis Appreciate Pulmnology Input Needs follow up with Pulmnology upon discharge Need to continue 10mg prednisone daily after completing prednisone taper course (4) Hypotension: Patient was restarted on lisinopril prior to admission As per Patient, patient is not taking any HTN meds BP improved Hold amlodipine,lisinopril for now Further BP management as per his physician (Discussed with ) (5) ANTHONY (acute kidney injury): Baseline Cr:1.2 Cr: 2.6>> 2.0>>1.5 Likely prerenal due to dehydration Hold lisinopril for now Monitor renal function (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 Hold home agents BG levels elevated secondary to steroids Continue Sliding scale insulin while inpatient Monitor BGs DVT Px: Heparin SQ Code status: Full code Disposition: Plan to discharge to facility when medically stable Subjective Patient is seen and examined at bedside Doing much better today Offers no complaints Eager to get discharged Discussed with Pulmnology and (Custodial physician) today Minimal cough Denies chest pain/discomfort, dizziness, nausea, SOB Guards at bedside Physical Exam Vital Signs (Past 24 Hours): Last Vital Signs Temp 36.7 C 06/18/18 11:43 Pulse 86 06/18/18 11:43 Resp 18 06/18/18 11:43 BP 142/76 H 06/18/18 11:43 Pulse Ox 92 06/18/18 11:43 Physical Exam: Physical Exam: Vitals signs as noted above General Appearance:Moderately built and nourished, no apparent distress Head: normocephalic, Atraumatic Eyes: normal inspection, EOMI Neck: supple, Trachea midline Respiratory/Chest: Decreased breath sounds, + mild wheezes Cardiovascular: S1, S2, No murmur Abdomen/GI:Soft, Non tender, + abdominal hernia, Bowel sounds present Extremities/Musculoskelatal:normal inspection, no edema Neurologic/Psych:AAOX3, grossly no focal neurological deficits Skin: normal color, warm Results & Data Laboratory Results Short CBC 06/18/18 Range/Units 07:22 WBC 18.92 H (4.8-10.8) K/uL Hgb 13.6 L (14.0-18.0) g/dL Hct 41.3 L (42-52) % Plt Count 372 (130-400) K/uL BMP 06/18/18 07:22 Sodium 139 Potassium 4.8 Chloride 111 H Carbon Dioxide 24 BUN 21 H Creatinine 1.57 H D Glucose 180 H Calcium 8.7 (1) Hypotension Hypotension type: unspecified hypotension type Qualified Code(s): I95.9 - Hypotension, unspecified
--- NOTE | 2018-06-18 15:56 | Discharge Summary ---
Date of Service June 18, 2018 Admission HPI Per Admitting Provider This is a 62-year-old male inmate with a PMH of asthma, DM II, HTN and other medical problems listed below who presents with worsening shortness of breath and wheezing over the past 2 weeks. Patient has history of asthma and has been on chronic prednisone for the past few years. Was admitted in March 2018 and found to have multi lobar pneumonia and was treated with Rocephin and doxycycline, steroids and nebs. CT chest with contrast was performed at that time which showed possible evidence of bronchiectasis, per pulmonary service. There was also concern for allergic bronchopulmonary aspergillosis. Outpatient PFTs were recommended to differentiate between asthma or COPD, as well as testing for IgE with Aspergillus titers to evaluate for ABPA (allergic bronchopulmonary aspergillosis) on the CT scan most notable in the RUL. [place] well when he was discharged back to facility in March until a few weeks ago, when he noticed wheezing and worsening shortness of breath. Was sent to [facility], where 10 mg prednisone dose was discontinued. Has been taking Advair, Xopenex inhaler, Singulair and DuoNeb treatments 3 times a day with mild improvement. But still endorsing generalized weakness, fatigue and dry cough. Denies any fever, chills, lightheadedness, headache, chest pain, palpitations, nausea, vomiting, abdominal pain, diarrhea, constipation or lower extremity swelling. Admission Exam Per Admitting Provider General Appearance: WD/WN, distress from acute illness. Saturation 94% on 2L [place] Head: normocephalic, atraumatic Eyes: normal inspection, PERRL, EOMI ENT: hearing grossly normal, pharynx normal (moist mucous membranes) Neck: supple, no JVD, no adenopathy Respiratory/Chest: Diffuse wheezing in lung traore. No rales or rhonci. No respiratory distress or accessory muscle use Cardiovascular: regular rate, rhythm, no murmur, normal peripheral pulses, no BLE edema Abdomen/GI: normal bowel sounds, soft, non-tender to palpation Extremities/Musculoskelatal: normal inspection, no calf tenderness, normal capillary refill, no pedal edema Neurologic/Psych: alert, normal mood/affect, oriented x 3 Skin: normal color, warm/dry Principal Diagnosis Discharge Information Discharge Diagnosis Asthma Exacerbation Bronchiectasis Hypotension ANTHONY Discharge Goals Decrease discomfort,Improve function,Improve disease control Discharge Activity Limitations Resume your previous activity Discharge Data Allergies Allergy/AdvReac Type Severity Reaction Status Date / Time moxifloxacin [From Avelox] Allergy Intermediate Itchiness Verified 06/16/18 16:44 Penicillins Allergy Intermediate Itchiness Verified 06/16/18 16:44 Sulfa (Sulfonamide Allergy Intermediate Itchiness Verified 06/16/18 16:44 Antibiotics) Consultations 06/16/18 16:53 ED Decision to Admit Stat 06/16/18 20:29 Consult Case Management - Discharge Planning Routine 06/17/18 08:00 Consult Pulmonology Routine Procedures Performed CXR: 1. Improving right apical infiltrate. 2. Stable to slightly progressive bibasilar parenchymal infiltrative change. Venous Doppler: No evidence of lower extremity DVT. Ordered Studies 06/16/18 16:53 US venous doppler LE BI Stat Hospital Course (1) Acute on chronic respiratory failure with hypoxia: (2) Pneumonia: (3) Asthma exacerbation: Patient is a 62 yr male inmate with H/O Asthma, DM II and other medical problems presents with worsening shortness of breath and wheezing over the past 2 weeks. Asthma exacerbation-- Moderate Persistent, steroid dependent Bronchiectasis R/O allergic bronchopulmonary aspergillosis Hypoxia CXR: Improving right apical infiltrate. Stable to slightly progressive bibasilar parenchymal infiltrative change. Venous Doppler: No DVT Normal Procalcitonin flu PCR is negative Continue Abx Taper Steroids as able Needs work for IgE and eosinophils as outpatient to r/o allergic bronchopulmonary aspergillosis Appreciate Pulmnology Input Needs follow up with Pulmnology upon discharge Need to continue 10mg prednisone daily after completing prednisone taper course (4) Hypotension: Patient was restarted on lisinopril prior to admission As per Patient, patient is not taking any HTN meds BP improved Hold amlodipine,lisinopril for now Further BP management as per his physician (Discussed with ) (5) ANTHONY (acute kidney injury): Baseline Cr:1.2 Cr: 2.6>> 2.0>>1.5 Likely prerenal due to dehydration Hold lisinopril for now Monitor renal function (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 Hold home agents BG levels elevated secondary to steroids Continue Sliding scale insulin while inpatient Monitor BGs DVT Px: Heparin SQ Code status: Full code Disposition: Plan to discharge to facility when medically stable Total Time Total Time Spent Total Time Spent (In Minutes): 36 minutes Total Time Includes: Examination of the Patient, Discharge Planning, Medication Reconciliation, Communication With Other Providers and Other Discharge Plan Discharge Items [facility] Disposition: [facility] Reason For Visit: HYPOTENSION,WHEEZING,SOB Discharge Diagnosis: Asthma Exacerbation Bronchiectasis Hypotension ANTHONY Discharge Goals: Decrease discomfort, Improve disease control and Improve function Activity: Resume your previous activity Exercise/Sports: Gradually increase as tolerated Non-emergency contact: Primary Care Provider and Branch Operation Evaluation Manager Call non-emergency contact if: you have any medication questions, your symptoms worsen, your pain is not controlled, your pain is worsening, your pain is unusual for you, your pain is concerning for you and you have a fever Follow-up/Referrals: Rogerio NG [Primary Care Provider] - Diet: Carb Consistent or DM2 Addtl Provider Instructions: Follow up with your Physician at [facility] upon discharg e Complete the antibiotic and prednisone course as prescribed Seek immediate medical attention if your symptoms reoccur or worsen Prednisone Course: Start taking prednsione 60mg daily for 3 days, then 50mg for 3 days, then 40 mg for 3 days, then 30mg for 3 days, then 20mg for 3 days, then 10mg daily Prescriptions: New doxycycline hyclate 100 mg Capsule 100 mg PO BID 5 Days Qty: 10 RF: 0 amoxicillin-pot clavulanate [Augmentin] 500-125 mg tablet 1 tab PO BID Qty: 10 RF: 0 prednisone 20 mg tablet 20 mg PO UD 15 Days Qty: 27 RF: 0 prednisone 10 mg tablet 10 mg PO DAILY 30 Days Qty: 60 RF: 0 Continued metformin 500 mg Tablet 500 mg PO BID RF: 0 ipratropium-albuterol 0.5 mg-3 mg(2.5 mg base)/3 mL Solution For Nebulization 3 ml INHALATION QID PRN (Reason: Shortness Of Breath Or Wheezing) RF: 0 mirtazapine 45 mg Tablet 45 mg PO HS RF: 0 levalbuterol tartrate [Xopenex HFA] 45 mcg/actuation Hfa Aerosol Inhaler 2 inh INHALATION QID PRN (Reason: Shortness Of Breath) RF: 0 fluticasone-salmeterol [Advair Diskus] 500-50 mcg/dose Blister With Device 1 inh INHALATION BID RF: 0 montelukast [Singulair] 10 mg Tablet 10 mg PO PM RF: 0 Changed amlodipine 10 mg Tablet 5 mg PO DAILY Qty: 0 RF: 0 Discontinued levofloxacin 750 mg Tablet 750 mg PO DAILY RF: 0 lisinopril 40 mg Tablet 40 mg PO DAILY RF: 0 Stand-Alone Forms: [facility] Discharge Orders: Discharge Order (Routine); Ordered 06/18/18 Ordered By: Piter Solomon Admission Data Admit Date/Time: 06/16/18 18:27 Attending Provider: Piter Solomon Admit Provider: Jaya Cantor Primary Care Provider: Rogerio NG Other Providers: Jaya Cantor ; Micah Riley Service: Telemetry Other Interventions: Discharge Summary Assessment (RN) Last Done: 06/18/18 17:54 Pending Studies at Discharge: No DC Date/Time DO NOT enter until pt leaves facility: 06/18/18 18:00
--- NOTE | 2018-06-23 09:39 | Coding Query ---
To promote full compliance with coding requirements relating to patient care, provider participation is requested in all cases of ostomy care nurse uncertainty. Please assist us with the question(s) below: Coding Question(s): The diagnosis(es) below was documented throughout the patient's chart as a possible diagnosis. Please indicate if it is still a possible diagnosis or ruled out. Physician's Response(s): PNEUMONIA ( ) Diagnosed and POA ( ) Diagnosed and not POA ( X ) Ruled out ( ) Other (please specify): Thank you for your time, CHENTE Seymour, [facility]
== END 2018-06-18 18:00 | DRG 189 ==
LOC: ED 14:40 → 2W 18:27